=== PATIENT | male | born 1980 | race Caucasian/White ===

== ENCOUNTER 2020-01-12 10:16 | Emergency (ER) | payer OTHER ==
[~2020-01-12] VITALS: Ht 175.3 cm; Wt 97.5 kg
[2020-01-12] MEDS ORDERED: TOPIRAMATE100 MG (10:23)
== END 2020-01-12 15:40 | disposition home or self-care (01) ==
LOC: ER 10:16
DX: G43.909 Migraine, unspecified, not intractable, without status migrainosus (principal)

== ENCOUNTER 2020-01-23 11:46 | Emergency (ER) | payer OTHER ==
[~2020-01-23] VITALS: Ht 175.3 cm; Wt 97.5 kg
[~2020-01-23 11:46] MED LIST: TOPIRAMATE100 MG
== END 2020-01-23 15:21 | disposition home or self-care (01) ==
LOC: ER 11:46
DX: M62.838 Other muscle spasm (principal)